=== PATIENT | male | born 1950 | race Caucasian/White ===

== ENCOUNTER 2021-02-18 19:17 | Inpatient (IN) | payer OTHER ==
[2021-02-18] MEDS ORDERED: hydrOXYzine PAMOATE 25 MG CAPSULE (FP) PO PRN (22:17)
[2021-02-18] MEDS ORDERED: MAGNESIUM HYDROX 2400MG/30ML ORAL SUSPENSION 30 ML CUP PO PRN (22:17)
[2021-02-18] MEDS ORDERED: BISMUTH SUBSALICYLATE 524 MG/30 ML PO PRN (22:17)
[2021-02-18] MEDS ORDERED: guaiFENesin 200 MG/10 ML 10 ML UNIT-DOSE CUPS PO PRN (22:17)
[2021-02-18] MEDS ORDERED: MAG HYDROX/AL HYDROX/SIMETH 30 ML UNIT-DOSE CUP PO PRN (22:17)
[2021-02-18] MEDS ORDERED: ONDANSETRON *ODT* 4 MG TABLET SL PRN (22:17)
[2021-02-18] MEDS ORDERED: MENTHOL/PHENOL 1 EACH UD MM PRN (22:17)
[2021-02-18] MEDS ORDERED: MAGNESIUM CITRATE 300 ML BOTTLE PO PRN (22:17)
[2021-02-18] MEDS ORDERED: ACETAMINOPHEN 325 MG TABLET (FP) PO PRN ×2 (22:17)
[2021-02-18] MEDS ORDERED: METHOCARBAMOL 500 MG TABLET PO PRN (22:17)
[2021-02-18] MEDS ORDERED: IBUPROFEN 400 MG TABLET (FP) PO PRN (22:17)
[2021-02-18] MEDS ORDERED: diazePAM 5 MG TABLET PO PRN (22:19)
[2021-02-18] MEDS ORDERED: METOPROLOL TARTRATE 25 MG TABLET (FP) PO ONE (22:43)
[2021-02-18] MEDS ORDERED: diazePAM 5 MG TABLET PO SCH (23:00)
[2021-02-18 23:07] VITALS: BMI 42.7
[2021-02-19 00:50] VITALS: BP 147/86; PULSE 110; TEMP 98.6
[2021-02-19] MEDS ORDERED: PRENATAL VITAMINS W/ FOLIC ACID TABLET (FP) PO SCH (10:00)
[2021-02-19] MEDS ORDERED: MELATONIN 5 MG TABLETS PO SCH (22:00)
[2021-02-19] MEDS ORDERED: THIAMINE HCL 100 MG TABLET (FP) PO SCH (22:00)
[2021-02-20] MEDS ORDERED: diazePAM 5 MG TABLET PO SCH (06:00)
[2021-02-21] MEDS ORDERED: diazePAM 5 MG TABLET PO SCH (06:00)
[2021-02-22] MEDS ORDERED: diazePAM 5 MG TABLET PO ONE (06:00)
== END 2021-02-19 08:20 | disposition short-term general hospital (02) | DRG 775 ==
LOC: YASAS 19:17 → Y6N 23:51
PROVIDERS: ADMIT Allergy & Immunology; ATTEND Allergy & Immunology
PROC: HZ2ZZZZ Detoxification Services for Substance Abuse Treatment (ICD-10-PCS; principal; 2021-02-18)
DX: F10.230 Alcohol dependence with withdrawal, uncomplicated (principal); I10 Essential (primary) hypertension; R06.02 Shortness of breath; R05 Cough; R06.2 Wheezing; Z86.79 Personal history of other diseases of the circulatory system
CPT/HCPCS: C9803; U0003; U0005

== ENCOUNTER 2021-02-19 03:39 | Inpatient (IN) | payer OTHER ==
[2021-02-19] MEDS ORDERED: guaiFENesin 200 MG/10 ML 10 ML UNIT-DOSE CUPS PO ONE (04:06)
[2021-02-19] MEDS ORDERED: guaiFENesin/D-METHORPHAN HB 10 ML UNIT-DOSE CUPS ONE (04:15)
[2021-02-19 04:49] LABS: VENOUS BASE EXCESS 4.7 mmol/L (-2-2); VENOUS O2 SATURATION 94.4 % (70-80); VENOUS PH 7.465 (7.310-7.410)
[2021-02-19] MEDS ORDERED: CEFTRIAXONE 1 GM in DEXTROSE 5%-WATER - 50 ML IVPB ONE (04:53)
[2021-02-19] MEDS ORDERED: AZITHROMYCIN IVPB 500 MG in DEXTROSE 5%-WATER - 250 ML IVPB ONE (04:53)
[2021-02-19] MEDS ORDERED: AZITHROMYCIN IVPB 500 MG/250 ML BAG IVPB ONE (05:00)
[2021-02-19] MEDS ORDERED: CEFTRIAXONE 1 GM/50 ML BAG ONE (05:00)
[2021-02-19 05:13] LABS: INR 1.07 (0.83-1.09); PROTHROMBIN TIME (PATIENT) 12.9 SEC (9.7-13.0)
[2021-02-19 05:19] LABS: CHLORIDE 97 mmol/L (98-107); SODIUM 134 mmol/L (136-145)
[2021-02-19 05:21] LABS: CALCIUM 7.8 mg/dL (8.5-10.1)
[2021-02-19 05:22] LABS: ALBUMIN 2.9 g/dl (3.4-5.0); ANION GAP 7 MMOL/L (8-16); BLOOD UREA NITROGEN 11.8 mg/dL (7-18); CO2 30 mmol/L (21-32); EOS % 0.1 % (0-4.5); GLUCOSE,RANDOM 113 mg/dL (74-106); MEAN CELL VOLUME 97.2 fl (80-96)
[2021-02-19 05:25] LABS: CREATININE 0.5 mg/dL (0.55-1.3); SGOT/AST 82 U/L (15-37); SGPT/ALT 49 U/L (13-61)
[2021-02-19 05:27] LABS: BILIRUBIN,TOTAL 1.2 mg/dL (0.2-1); TOT PROT 6.4 g/dl (6.4-8.2)
[2021-02-19 05:28] LABS: ALK PHOS 133 U/L (45-117); BASO % 0.3 % (0-2.0); HEMATOCRIT 38.3 % (35.4-49); HEMOGLOBIN 14.1 GM/dL (11.7-16.9); LYMPH % 8.5 % (8-40); MCH 35.7 pg (25.7-33.7); MCHC 36.8 g/dl (32.0-35.9); MEAN PLT VOLUME 8.5 fl (7.5-11.1); MONO % 7.3 % (3.8-10.2); NEUT % 83.8 % (42.8-82.8); PLATELET COUNT 161 10^3/uL (134-434); RBC 3.94 M/mm3 (4.00-5.60); RDW 14.7 % (11.9-15.9); WHITE BLOOD COUNT 10.1 K/mm3 (4.0-10.0)
[2021-02-19 05:29] LABS: LDH 239 U/L (87-246)
[2021-02-19 05:30] LABS: N-TERMINAL BNP 553.6 pg/ml (5-125)
[2021-02-19] MEDS ORDERED: PIPERACILLIN/TAZOB 3.375 GM 3.375 GM in DEXTROSE 5%-WATER - 50 ML IVPB ONE (06:15)
[2021-02-19] MEDS ORDERED: PIPERACILLIN/TAZOB 3.375 GM 3.375 GM/50 ML BAG IVPB ONE (07:17)
[2021-02-19] MEDS ORDERED: LORazepam 2 MG/ML SDV VIAL IVPUSH ONE (07:44)
[2021-02-19] MEDS ORDERED: SODIUM CHLORIDE 0.9% 500 ML INFUS.BAG IV ONE (07:45)
[2021-02-19] MEDS ORDERED: LORazepam 2 MG/ML SDV VIAL ONE (07:55)
[2021-02-19 09:34] LABS: EPI CELLS 5 /uL (0-25.1); HYALINE CASTS 1 /uL (0-3.1); PH,URINE 6.5 (5.0-8.0); URINE APPEARANCE CLEAR; URINE BACTERIA 20 /uL (0-1359); URINE BILIRUBIN 1+ (NEGATIVE); URINE COLOR DK YELLOW; URINE GLUCOSE (UA) NEGATIVE (NEGATIVE); URINE KETONE TRACE (NEGATIVE); URINE LEUK ESTERASE NEGATIVE (NEGATIVE); URINE NITRITE NEGATIVE (NEGATIVE); URINE PROTEIN 2+ (NEGATIVE); URINE RBC 7 /uL (0-23.9); URINE WBC 13 /uL (0-25.8)
[2021-02-19] MEDS ORDERED: chlordiazePOXIDE HCL 25 MG CAPSULE PO PRN (09:39)
[2021-02-19] MEDS ORDERED: FOLIC ACID INJECTION - 1 MG, THIAMINE HCL 100 MG, MULTIVIT INJECTION ADULT 10 ML in SOD... IVPB ONE (09:41)
[2021-02-19] MEDS: MULTIVITAMINS (DAILY MVI) TABLET (FP) PO SCH (10:20)
[2021-02-19] MEDS: PANTOPRAZOLE 40 MG TABLET PO SCH (10:20)
[2021-02-19] MEDS ORDERED: ALBUTEROL SO4 0.083% IH SOL 2.5 MG/3 ML VIAL.NEB. NEB PRN (10:22)
[2021-02-19] MEDS: HEPARIN NA (PORCINE) 5,000 UNITS/ML 1ML VIAL SQ SCH ×2 (10:30→21:45)
[2021-02-19] MEDS ORDERED: chlordiazePOXIDE HCL 25 MG CAPSULE PO SCH (11:00)
[2021-02-19] MEDS: VALSARTAN 40 MG TABLET PO SCH (11:20)
[2021-02-19] MEDS ORDERED: VALSARTAN 80 MG TABLET ONE (11:32)
[2021-02-19] MEDS ORDERED: PANTOPRAZOLE 40 MG TABLET ONE (11:32)
[2021-02-19] MEDS ORDERED: MULTIVITAMINS (DAILY MVI) TABLET (FP) ONE (11:32)
[2021-02-19] MEDS ORDERED: HEPARIN NA (PORCINE) 5,000 UNITS/ML 1ML VIAL ONE (11:33)
[2021-02-19] MEDS ORDERED: methylPREDNISolone NA SUCC 40 MG/1 ML VIAL ONE ×2 (11:33→18:32)
[2021-02-19 11:54] LABS: HEMATOCRIT 41.5 % (35.4-49); HEMOGLOBIN 14.3 GM/dL (11.7-16.9); MCH 32.7 pg (25.7-33.7); MCHC 34.5 g/dl (32.0-35.9); MEAN CELL VOLUME 94.8 fl (80-96); MEAN PLT VOLUME 8.2 fl (7.5-11.1); PLATELET COUNT 168 10^3/uL (134-434); RBC 4.38 M/mm3 (4.00-5.60); RDW 15.2 % (11.9-15.9); WHITE BLOOD COUNT 7.3 K/mm3 (4.0-10.0)
[2021-02-19 12:13] LABS: CALCIUM 7.7 mg/dL (8.5-10.1)
[2021-02-19 12:14] LABS: BLOOD UREA NITROGEN 9.2 mg/dL (7-18)
[2021-02-19 12:17] LABS: CREATININE 0.5 mg/dL (0.55-1.3)
[2021-02-19] MEDS: methylPREDNISolone NA SUCC 40 MG/1 ML VIAL IVPUSH SCH ×2 (12:54→18:41)
[2021-02-19] MEDS ORDERED: POTASSIUM CHLORIDE TABS 20 MEQ TABLET.ER (FP) PO ONE ×2 (15:42→16:06)
[2021-02-19] MEDS ORDERED: LORazepam 1 MG TABLET PO PRN (15:44)
[2021-02-19] MEDS: LORazepam 2 MG TABLET PO SCH ×2 (16:46→17:49)
[2021-02-19] MEDS ORDERED: LORazepam 1 MG TABLET ONE (17:44)
[2021-02-19] MEDS ORDERED: PNEUMOC 13-VAL CONJ-DIP CRM/PF 0.5 ML DISP.SYRIN IM ONE (22:30)
[2021-02-20] MEDS: LORazepam 1 MG TABLET PO SCH ×5 (00:56→23:13)
[2021-02-20] MEDS: methylPREDNISolone NA SUCC 40 MG/1 ML VIAL IVPUSH SCH ×3 (00:59→17:28)
[2021-02-20] MEDS: LORazepam 2 MG TABLET PO SCH (07:27)
[2021-02-20 07:30] LABS: BASO % 0.2 % (0-2.0); HEMATOCRIT 41.9 % (35.4-49); HEMOGLOBIN 14.4 GM/dL (11.7-16.9); LYMPH % 12.6 % (8-40); MCH 32.8 pg (25.7-33.7); MCHC 34.4 g/dl (32.0-35.9); MEAN CELL VOLUME 95.2 fl (80-96); MEAN PLT VOLUME 8.8 fl (7.5-11.1); MONO % 3.4 % (3.8-10.2); NEUT % 83.8 % (42.8-82.8); PLATELET COUNT 178 10^3/uL (134-434); RDW 14.7 % (11.9-15.9); WHITE BLOOD COUNT 5.7 K/mm3 (4.0-10.0)
[2021-02-20 07:51] LABS: ALBUMIN 2.7 g/dl (3.4-5.0); BLOOD UREA NITROGEN 14.4 mg/dL (7-18); CALCIUM 8.4 mg/dL (8.5-10.1)
[2021-02-20 07:54] LABS: CREATININE 0.7 mg/dL (0.55-1.3)
[2021-02-20 07:55] LABS: BILIRUBIN,TOTAL 0.8 mg/dL (0.2-1)
[2021-02-20 07:56] LABS: TOT PROT 6.6 g/dl (6.4-8.2)
[2021-02-20] MEDS ORDERED: cefTRIAXone SODIUM 1 GM VIAL ONE (09:06)
[2021-02-20] MEDS ORDERED: DEXTROSE 5%-WATER - 50 ML IVPB ONE (09:06)
[2021-02-20] MEDS: HEPARIN NA (PORCINE) 5,000 UNITS/ML 1ML VIAL SQ SCH ×2 (09:20→23:13)
[2021-02-20] MEDS: VALSARTAN 40 MG TABLET PO SCH (09:21)
[2021-02-20] MEDS: PANTOPRAZOLE 40 MG TABLET PO SCH (09:21)
[2021-02-20] MEDS: MULTIVITAMINS (DAILY MVI) TABLET (FP) PO SCH (09:22)
[2021-02-20] MEDS ORDERED: CEFTRIAXONE 1 GM in DEXTROSE 5%-WATER - 50 ML IVPB ONE (10:00)
[2021-02-20] MEDS ORDERED: AZITHROMYCIN IVPB 500 MG in DEXTROSE 5%-WATER - 250 ML IVPB SCH (10:00)
[2021-02-20] MEDS: AZITHROMYCIN IVPB 500 MG/250 ML BAG IVPB SCH (11:24)
[2021-02-21] MEDS: methylPREDNISolone NA SUCC 40 MG/1 ML VIAL IVPUSH SCH ×3 (01:00→17:14)
[2021-02-21] MEDS ORDERED: chlordiazePOXIDE HCL 25 MG CAPSULE PO SCH (05:00)
[2021-02-21] MEDS: LORazepam 1 MG TABLET PO SCH ×5 (06:33→23:16)
[2021-02-21 07:44] LABS: BASO % 0.3 % (0-2.0); HEMATOCRIT 41.5 % (35.4-49); HEMOGLOBIN 14.4 GM/dL (11.7-16.9); LYMPH % 7.9 % (8-40); MCH 33.1 pg (25.7-33.7); MCHC 34.7 g/dl (32.0-35.9); MEAN CELL VOLUME 95.5 fl (80-96); MONO % 3.7 % (3.8-10.2); NEUT % 88.1 % (42.8-82.8); PLATELET COUNT 205 10^3/uL (134-434); RBC 4.34 M/mm3 (4.00-5.60); RDW 14.7 % (11.9-15.9); WHITE BLOOD COUNT 10.8 K/mm3 (4.0-10.0)
[2021-02-21 08:00] LABS: CALCIUM 8.4 mg/dL (8.5-10.1)
[2021-02-21 08:01] LABS: ALBUMIN 2.7 g/dl (3.4-5.0); BLOOD UREA NITROGEN 12.2 mg/dL (7-18); MAGNESIUM 1.9 mg/dL (1.8-2.4)
[2021-02-21 08:04] LABS: CREATININE 0.5 mg/dL (0.55-1.3)
[2021-02-21 08:05] LABS: TOT PROT 6.6 g/dl (6.4-8.2)
[2021-02-21] MEDS ORDERED: cefTRIAXone SODIUM 1 GM VIAL ONE (09:45)
[2021-02-21] MEDS ORDERED: DEXTROSE 5%-WATER - 50 ML IVPB ONE (09:46)
[2021-02-21] MEDS: MULTIVITAMINS (DAILY MVI) TABLET (FP) PO SCH (09:49)
[2021-02-21] MEDS: CEFTRIAXONE 1 GM in DEXTROSE 5%-WATER - 50 ML IVPB SCH (09:49)
[2021-02-21] MEDS: HEPARIN NA (PORCINE) 5,000 UNITS/ML 1ML VIAL SQ SCH ×2 (09:50→22:32)
[2021-02-21] MEDS: VALSARTAN 40 MG TABLET PO SCH (09:51)
[2021-02-21] MEDS: PANTOPRAZOLE 40 MG TABLET PO SCH (09:51)
[2021-02-21] MEDS: AZITHROMYCIN IVPB 500 MG/250 ML BAG IVPB SCH (09:51)
[2021-02-21] MEDS: ALBUTEROL SO4 2.5/IPRATROPIUM 0.5 INH SOL 3 ML VIAL.NEB. NEB SCH ×3 (12:31→20:45)
[2021-02-21] MEDS ORDERED: ALBUTEROL SO4 HFA INHALER IH PRN (15:15)
[2021-02-22] MEDS ORDERED: LORazepam 0.5 MG TABLET PO PRN
[2021-02-22] MEDS ORDERED: chlordiazePOXIDE HCL 10 MG CAPSULE PO PRN
[2021-02-22] MEDS: methylPREDNISolone NA SUCC 40 MG/1 ML VIAL IVPUSH SCH ×3 (01:27→18:01)
[2021-02-22] MEDS ORDERED: chlordiazePOXIDE HCL 10 MG CAPSULE PO SCH (05:00)
[2021-02-22] MEDS: LORazepam 0.5 MG TABLET PO SCH ×4 (05:33→22:08)
[2021-02-22] MEDS: ALBUTEROL SO4 2.5/IPRATROPIUM 0.5 INH SOL 3 ML VIAL.NEB. NEB SCH ×4 (07:35→19:46)
[2021-02-22 08:30] LABS: BASO % 0.5 % (0-2.0); EOS % 0.1 % (0-4.5); HEMATOCRIT 41.9 % (35.4-49); HEMOGLOBIN 14.7 GM/dL (11.7-16.9); LYMPH % 11.9 % (8-40); MCH 33.3 pg (25.7-33.7); MEAN PLT VOLUME 8.8 fl (7.5-11.1); MONO % 6.9 % (3.8-10.2); NEUT % 80.6 % (42.8-82.8); PLATELET COUNT 232 10^3/uL (134-434); RBC 4.41 M/mm3 (4.00-5.60); RDW 14.8 % (11.9-15.9)
[2021-02-22 08:40] LABS: ALBUMIN 2.9 g/dl (3.4-5.0); BLOOD UREA NITROGEN 15.1 mg/dL (7-18); CALCIUM 8.6 mg/dL (8.5-10.1)
[2021-02-22 08:44] LABS: CREATININE 0.5 mg/dL (0.55-1.3)
[2021-02-22 08:45] LABS: BILIRUBIN,TOTAL 0.7 mg/dL (0.2-1); TOT PROT 6.6 g/dl (6.4-8.2)
[2021-02-22] MEDS ORDERED: cefTRIAXone SODIUM 1 GM VIAL ONE (09:46)
[2021-02-22] MEDS ORDERED: DEXTROSE 5%-WATER - 50 ML IVPB ONE (09:46)
[2021-02-22] MEDS: MULTIVITAMINS (DAILY MVI) TABLET (FP) PO SCH (10:18)
[2021-02-22] MEDS: AZITHROMYCIN IVPB 500 MG/250 ML BAG IVPB SCH (10:18)
[2021-02-22] MEDS: PANTOPRAZOLE 40 MG TABLET PO SCH (10:18)
[2021-02-22] MEDS: HEPARIN NA (PORCINE) 5,000 UNITS/ML 1ML VIAL SQ SCH ×2 (10:18→22:08)
[2021-02-22] MEDS: CEFTRIAXONE 1 GM in DEXTROSE 5%-WATER - 50 ML IVPB SCH (10:18)
[2021-02-22] MEDS: VALSARTAN 40 MG TABLET PO SCH (10:18)
[2021-02-22 17:15] VITALS: BMI 40.2
[2021-02-23] MEDS: methylPREDNISolone NA SUCC 40 MG/1 ML VIAL IVPUSH SCH ×3 (03:29→17:04)
[2021-02-23] MEDS ORDERED: LORazepam 0.5 MG TABLET PO ONE (05:00)
[2021-02-23] MEDS ORDERED: chlordiazePOXIDE HCL 10 MG CAPSULE PO SCH (05:00)
[2021-02-23] MEDS: ALBUTEROL SO4 2.5/IPRATROPIUM 0.5 INH SOL 3 ML VIAL.NEB. NEB SCH ×4 (08:15→20:48)
[2021-02-23] MEDS ORDERED: cefTRIAXone SODIUM 1 GM VIAL ONE (09:24)
[2021-02-23] MEDS ORDERED: DEXTROSE 5%-WATER - 50 ML IVPB ONE (09:25)
[2021-02-23] MEDS: PANTOPRAZOLE 40 MG TABLET PO SCH (09:42)
[2021-02-23] MEDS: FOLIC ACID 1 MG TABLET (FP) PO SCH (09:42)
[2021-02-23] MEDS: VALSARTAN 40 MG TABLET PO SCH (09:42)
[2021-02-23] MEDS: MULTIVITAMINS (DAILY MVI) TABLET (FP) PO SCH (09:42)
[2021-02-23] MEDS: CEFTRIAXONE 1 GM in DEXTROSE 5%-WATER - 50 ML IVPB SCH (09:42)
[2021-02-23] MEDS: HEPARIN NA (PORCINE) 5,000 UNITS/ML 1ML VIAL SQ SCH ×2 (09:42→21:36)
[2021-02-23 10:52] LABS: HEMATOCRIT 40.2 % (35.4-49); HEMOGLOBIN 13.9 GM/dL (11.7-16.9); MCH 32.6 pg (25.7-33.7); MCHC 34.5 g/dl (32.0-35.9); MEAN CELL VOLUME 94.5 fl (80-96); MEAN PLT VOLUME 8.7 fl (7.5-11.1); PLATELET COUNT 220 10^3/uL (134-434); RBC 4.25 M/mm3 (4.00-5.60); RDW 14.6 % (11.9-15.9); WHITE BLOOD COUNT 6.8 K/mm3 (4.0-10.0)
[2021-02-23 11:20] LABS: CALCIUM 8.2 mg/dL (8.5-10.1)
[2021-02-23 11:21] LABS: ALBUMIN 2.7 g/dl (3.4-5.0); BLOOD UREA NITROGEN 12.8 mg/dL (7-18); MAGNESIUM 1.9 mg/dL (1.8-2.4)
[2021-02-23 11:24] LABS: CREATININE 0.5 mg/dL (0.55-1.3)
[2021-02-23 11:26] LABS: BILIRUBIN,TOTAL 0.5 mg/dL (0.2-1)
[2021-02-23 12:03] LABS: ANISOCYTOSIS 0; MACROCYTOSIS 0; PLATELET ESTIMATE NORMAL
[2021-02-24] MEDS: methylPREDNISolone NA SUCC 40 MG/1 ML VIAL IVPUSH SCH ×2 (02:41→09:21)
[2021-02-24] MEDS ORDERED: chlordiazePOXIDE HCL 10 MG CAPSULE PO ONE (05:00)
[2021-02-24] MEDS: ALBUTEROL SO4 2.5/IPRATROPIUM 0.5 INH SOL 3 ML VIAL.NEB. NEB SCH ×4 (07:25→20:12)
[2021-02-24 07:33] LABS: HEMATOCRIT 42.5 % (35.4-49); HEMOGLOBIN 14.5 GM/dL (11.7-16.9); MCH 31.8 pg (25.7-33.7); MCHC 34.1 g/dl (32.0-35.9); MEAN CELL VOLUME 93.4 fl (80-96); PLATELET COUNT 237 10^3/uL (134-434); RBC 4.54 M/mm3 (4.00-5.60); WHITE BLOOD COUNT 6.9 K/mm3 (4.0-10.0)
[2021-02-24 07:54] LABS: CALCIUM 8.5 mg/dL (8.5-10.1)
[2021-02-24 07:55] LABS: ALBUMIN 2.9 g/dl (3.4-5.0); BLOOD UREA NITROGEN 13.2 mg/dL (7-18); MAGNESIUM 2.3 mg/dL (1.8-2.4)
[2021-02-24 07:58] LABS: CREATININE 0.5 mg/dL (0.55-1.3)
[2021-02-24 07:59] LABS: BILIRUBIN,TOTAL 0.6 mg/dL (0.2-1)
[2021-02-24 08:00] LABS: TOT PROT 6.4 g/dl (6.4-8.2)
[2021-02-24 08:57] LABS: ANISOCYTOSIS 1+; MACROCYTOSIS 0; PLATELET ESTIMATE NORMAL; TEAR DROP CELLS 1+
[2021-02-24] MEDS ORDERED: cefTRIAXone SODIUM 1 GM VIAL ONE (09:12)
[2021-02-24] MEDS ORDERED: DEXTROSE 5%-WATER - 50 ML IVPB ONE (09:13)
[2021-02-24] MEDS: HEPARIN NA (PORCINE) 5,000 UNITS/ML 1ML VIAL SQ SCH ×2 (09:21→21:11)
[2021-02-24] MEDS: PANTOPRAZOLE 40 MG TABLET PO SCH (09:21)
[2021-02-24] MEDS: MULTIVITAMINS (DAILY MVI) TABLET (FP) PO SCH (09:21)
[2021-02-24] MEDS: CEFTRIAXONE 1 GM in DEXTROSE 5%-WATER - 50 ML IVPB SCH (09:21)
[2021-02-24] MEDS: VALSARTAN 40 MG TABLET PO SCH (09:21)
[2021-02-24] MEDS: FOLIC ACID 1 MG TABLET (FP) PO SCH (09:21)
[2021-02-24] MEDS ORDERED: ACETAMINOPHEN 325 MG TABLET (FP) PO PRN (14:06)
[2021-02-24] MEDS ORDERED: methylPREDNISolone NA SUCC 40 MG/1 ML VIAL IVPUSH SCH (22:00)
[2021-02-25 05:17] VITALS: TEMP 98.9
[2021-02-25] MEDS: ALBUTEROL SO4 2.5/IPRATROPIUM 0.5 INH SOL 3 ML VIAL.NEB. NEB SCH ×2 (07:35→11:17)
[2021-02-25] MEDS ORDERED: CEFUROXIME AXETIL 500 MG TABLET PO SCH ×2 (08:00→10:00)
[2021-02-25 08:52] VITALS: BP 128/76; PULSE 96
[2021-02-25] MEDS: VALSARTAN 40 MG TABLET PO SCH (09:38)
[2021-02-25] MEDS: HEPARIN NA (PORCINE) 5,000 UNITS/ML 1ML VIAL SQ SCH (09:38)
[2021-02-25] MEDS: MULTIVITAMINS (DAILY MVI) TABLET (FP) PO SCH (09:39)
[2021-02-25] MEDS: FOLIC ACID 1 MG TABLET (FP) PO SCH (09:40)
[2021-02-25] MEDS: PANTOPRAZOLE 40 MG TABLET PO SCH (09:40)
[2021-02-25] MEDS ORDERED: predniSONE 20 MG TABLET (UD) PO SCH ×2 (10:00)
[2021-02-28] MEDS ORDERED: predniSONE 10 MG TABLET (UD) PO SCH (10:00)
[2021-03-03] MEDS ORDERED: predniSONE 20 MG TABLET (UD) PO SCH (10:00)
[2021-03-06] MEDS ORDERED: predniSONE 10 MG TABLET (UD) PO SCH (10:00)
== END 2021-02-25 14:44 | disposition home or self-care (01) | DRG 139 ==
LOC: JER 03:39 → JERBED 05:36 → J7W 19:20
PROVIDERS: ADMIT Internal Medicine; ATTEND Nurse Practitioner Acute Care
DX: J18.9 Pneumonia, unspecified organism (principal); J96.01 Acute respiratory failure with hypoxia; G93.41 Metabolic encephalopathy; F10.230 Alcohol dependence with withdrawal, uncomplicated; I10 Essential (primary) hypertension; Z20.822 Contact with and (suspected) exposure to COVID-19; J98.01 Acute bronchospasm; F17.210 Nicotine dependence, cigarettes, uncomplicated
CPT/HCPCS: 36415; 71045-TC-FY; 71250-TC; 80048; 80053; 81003; 82248; 82550; 82728; 82803; 83036; 83605; 83615; 83735; 83880; 84484; 85025; 85027; 85610; 85730; 86140; 86769; 87040; 87070; 87086; 87205; 87804; 87899; 90670; 93005; 93010; 94640; 97116-GP; 97161-GP; 99285-25; C9803; J1644; U0003; U0005